=== PATIENT | female | born 1940 | race Hispanic/Latino ===

== ENCOUNTER 2017-03-26 16:43 | Emergency (ER) | payer OTHER ==
[~2017-03-26 16:43] MED LIST: ALEN70TA47 PO; CALC600T12 PO; CHOL200026 PO; LOSA1TAB37 PO; MULT-1258 PO; PRAV20TA4 PO
[2017-03-26] MEDS ORDERED: SODIUM CHLORIDE 0.9% 1000ML 1,000 ML IV ONE (17:32)
[2017-03-26] MEDS ORDERED: ONDANSETRON HCL 4 MG/2 ML VIAL ONE (17:32)
[2017-03-26] MEDS ORDERED: MORPHINE SULFATE 2 MG/ML 1ML SYG ONE (17:33)
[2017-03-26 17:57] LABS: BASOPHILS % (AUTO) 0.4 % (0.0-5.0); EOSINOPHILS % (AUTO) 0.5 % (0.0-8.0); LYMPHOCYTES % (AUTO) 14.2 % (21.0-51.0); MEAN CORPUSCULAR HGB CONC 34.5 g/dL (32.0-36.0); MONOCYTES % (AUTO) 7.9 % (3.0-13.0); PLATELET COUNT (AUTO) 276 K/uL (130-400); RED BLOOD CELL COUNT(AUTO) 4.45 MIL/uL (4.00-5.50); RED CELL DISTRIBUTION WIDTH 14.7 % (11.0-15.5); WHITE BLOOD COUNT (AUTO) 15.3 K/uL (4.8-10.8)
[2017-03-26 17:59] LABS: BILIRUBIN,URINE Negative (NEGATIVE); COLOR,URINE Yellow (YELLOW); GLUCOSE, URINE (UA) Negative (NEGATIVE); KETONES,URINE 15 mg/dL (NEGATIVE); LEUKOCYTE ESTERASE ,URINE Small (NEGATIVE); NITRATE,URINE Negative (NEGATIVE); OCCULT BLOOD,URINE Negative (NEGATIVE); PH,URINE >=9.0 (5.0-8.0); PROTEIN,URINE Trace (NEGATIVE)
[2017-03-26 18:06] LABS: INR 0.94 (0.85-1.15); PARTIAL THROMBOPLASTIN TIME 25.7 SEC (26.3-35.5); PROTHROMBIN TIME 9.9 SEC (9.6-11.6)
[2017-03-26 18:07] LABS: APPEARANCE,URINE SLIGHTLY CLOUDY (CLEAR)
[2017-03-26 18:15] LABS: CREATININE 0.7 mg/dL (0.5-1.5); POTASSIUM 3.5 mmol/L (3.5-5.1)
[2017-03-26 18:20] LABS: ALBUMIN 3.9 g/dL (3.5-5.0); BILIRUBIN,TOTAL 0.9 mg/dL (0.2-1.0); TOTAL PROTEIN, SERUM 7.4 g/dL (6.0-8.3)
[2017-03-26 18:54] LABS: RBC,URINE 0-1 /HPF (0-1)
[2017-03-26 18:55] LABS: AMORPHOUS SEDIMENT,UR Few /LPF (None Seen); BACTERIA,URINE Few /HPF (None Seen); SQUAMOUS EPITHELIAL CELL,UR Rare /LPF (0-2)
[2017-03-26] MEDS ORDERED: IOPAMIDOL-370 75 ML VIAL IV ONE (20:08)
== END 2017-03-26 22:13 | disposition home or self-care (01) ==
LOC: EDH 16:43
DX: K52.9 Noninfective gastroenteritis and colitis, unspecified (principal); R11.2 Nausea with vomiting, unspecified; I10 Essential (primary) hypertension; M81.0 Age-related osteoporosis without current pathological fracture; Z90.710 Acquired absence of both cervix and uterus; Z90.49 Acquired absence of other specified parts of digestive tract; Z79.899 Other long term (current) drug therapy
CPT/HCPCS: 36415; 71045; 74177; 80053; 81001; 82550; 83690; 84484; 85025; 85610; 85730; 93005; 96361; 96374; 96375; 99285; J2405; J7030; Q9967

== ENCOUNTER 2017-04-22 07:29 | Day surgery (SDC) | payer OTHER ==
[~2017-04-22] VITALS: Ht 154.9 cm; Wt 66.1 kg
[2017-04-22] MEDS ORDERED: TRAM50TA4 PO (09:05)
[2017-04-22] MEDS ORDERED: DICL2100G TP (09:05)
[2017-04-22] MEDS ORDERED: RALO60TA13 PO (09:05)
[2017-04-22 09:06] VITALS: BP 146/73
[2017-04-22] MEDS ORDERED: SODIUM CHLORIDE 0.9% 1000ML 1,000 ML IV ONE (09:20)
[2017-04-22] MEDS ORDERED: PROPOFOL 10 MG/ML 20ML VIAL IV ONE (09:22)
[2017-04-22 09:35] VITALS: BP 105/50
== END 2017-04-22 10:10 ==
LOC: DAH 07:29
PROVIDERS: ATTEND Internal Medicine Gastroenterology
DX: R93.5 Abnormal findings on diagnostic imaging of other abdominal regions, including retroperitoneum (principal); Z79.899 Other long term (current) drug therapy; E78.5 Hyperlipidemia, unspecified; I10 Essential (primary) hypertension; Z90.49 Acquired absence of other specified parts of digestive tract; Z90.710 Acquired absence of both cervix and uterus; K59.04 Chronic idiopathic constipation
CPT/HCPCS: 43231; 93005; A4606; J2704; J7030

== ENCOUNTER 2017-12-29 14:18 | Emergency (ER) | payer OTHER ==
[~2017-12-29 14:18] MED LIST changes: -ALEN70TA47 PO; +DICL2100G TP; +RALO60TA13 PO; +TRAM50TA4 PO
[2017-12-29] MEDS ORDERED: ONDANSETRON HCL 4 MG/2 ML VIAL ONE (14:38)
[2017-12-29 14:55] LABS: BASOPHILS % (AUTO) 0.3 % (0.0-5.0); EOSINOPHILS % (AUTO) 0.5 % (0.0-8.0); HEMATOCRIT 40.4 % (36-48); MEAN CORPUSCULAR HEMOGLOBIN 32.6 pg (27.0-33.0); MEAN CORPUSCULAR HGB CONC 34.3 g/dL (32.0-36.0); MEAN CORPUSCULAR VOLUME 95.1 fL (79-99); MONOCYTES % (AUTO) 6.2 % (3.0-13.0); NUCLEATED RED BLOOD CELLS 0.1 % (0.0-0.19); PLATELET COUNT (AUTO) 205 K/uL (130-400); RED BLOOD CELL COUNT(AUTO) 4.25 MIL/uL (4.00-5.50); RED CELL DISTRIBUTION WIDTH 13.6 % (11.0-15.5); WHITE BLOOD COUNT (AUTO) 8.4 K/uL (4.8-10.8)
[2017-12-29 15:41] LABS: CREATININE 0.6 mg/dL (0.5-1.5); POTASSIUM 3.3 mmol/L (3.5-5.1)
[2017-12-29 15:46] LABS: ALBUMIN 3.7 g/dL (3.5-5.0); BILIRUBIN,TOTAL 1.4 mg/dL (0.2-1.0); TOTAL PROTEIN, SERUM 7.1 g/dL (6.0-8.3)
== END 2017-12-29 17:03 | disposition home or self-care (01) ==
LOC: EDH 14:18
DX: A09 Infectious gastroenteritis and colitis, unspecified (principal); E86.9 Volume depletion, unspecified; I10 Essential (primary) hypertension; M81.0 Age-related osteoporosis without current pathological fracture
CPT/HCPCS: 36415; 80053; 85025; 96361; 96374; 99284; J2405

== ENCOUNTER → 2018-07-27 | Outpatient (CLI) | payer OTHER ==
[~2018-07-27] MED LIST changes: +IOHEXOL-350 50ML VIAL IV ONE
== END | disposition home or self-care (01) ==
LOC: RAH 07:55
PROVIDERS: ATTEND Family Medicine
DX: J44.9 Chronic obstructive pulmonary disease, unspecified (principal); R91.1 Solitary pulmonary nodule; M47.815 Spondylosis without myelopathy or radiculopathy, thoracolumbar region
CPT/HCPCS: 71270; Q9967

== ENCOUNTER 2018-08-05 06:25 | Observation (INO) | payer OTHER ==
[2018-08-04 16:02] VITALS: BP 134/65
[2018-08-04 16:08] LABS: APPEARANCE,URINE Clear (CLEAR); BILIRUBIN,URINE Negative (NEGATIVE); COLOR,URINE Yellow (YELLOW); GLUCOSE, URINE (UA) Negative (NEGATIVE); KETONES,URINE Negative (NEGATIVE); LEUKOCYTE ESTERASE ,URINE Negative (NEGATIVE); NITRATE,URINE Negative (NEGATIVE); OCCULT BLOOD,URINE Negative (NEGATIVE); PROTEIN,URINE Negative (NEGATIVE); UROBILINOGEN,URINE 0.2 mg/dL (0.2-1.0)
[~2018-08-05] VITALS: Ht 154.9 cm; Wt 65.2 kg
[2018-08-05] VITALS (21 sets, daily range): BP systolic 50–130; BP diastolic 44–60
[~2018-08-05 06:25] MED LIST changes: +ACET-2743 PO; +BRIM10DR16 OU; +CETI10TA57 PO; -DICL2100G TP; -IOHEXOL-350 50ML VIAL IV ONE; -TRAM50TA4 PO
[2018-08-05] MEDS ORDERED: TRANEXAMIC ACID 1000MG/10ML IV ONE ×2 (08:30→12:55)
[2018-08-05] MEDS ORDERED: CEFAZOLIN SODIUM 1 GM VIAL ONE (08:30)
[2018-08-05] MEDS ORDERED: ACETAMINOPHEN EXTRA STRENGTH 500 MG TABLET ONE (08:38)
[2018-08-05] MEDS ORDERED: KETOROLAC TROMETHAMINE 15MG/ML ONE (08:38)
[2018-08-05] MEDS ORDERED: CELECOXIB 200 MG CAP ONE (08:39)
[2018-08-05] MEDS ORDERED: OXYCODONE HCL 10 MG TAB.SR.12H PO ONE (08:39)
[2018-08-05] MEDS ORDERED: LACTATED RINGERS 1000ML 1,000 ML IV ONE (08:40)
[2018-08-05] MEDS: CEFAZOLIN SODIUM 1 GM VIAL ONE ×2 (09:08→10:20)
[2018-08-05] MEDS ORDERED: DEXAMETHASONE SOD PHOSPHATE 10MG/ML 1ML VIAL ONE (09:59)
[2018-08-05] MEDS ORDERED: LIDOCAINE PF 2% 5ML ABBOJECT ONE (09:59)
[2018-08-05] MEDS ORDERED: PROPOFOL 10 MG/ML 20ML VIAL IV ONE (10:00)
[2018-08-05] MEDS ORDERED: MIDAZOLAM HCL 1 MG/ML 2ML VIAL ONE (10:00)
[2018-08-05] MEDS ORDERED: FENTANYL CITRATE PF 50 MCG/1 ML 2ML VIAL ONE ×2 (10:00→11:08)
[2018-08-05] MEDS ORDERED: ONDANSETRON HCL 4 MG/2 ML VIAL ONE (10:00)
[2018-08-05] MEDS ORDERED: EPHEDRINE SULFATE 50 MG/ML AMPULE ONE (10:06)
[2018-08-05] MEDS ORDERED: ROPIVACAINE 0.5% 5MG/ML 30ML IJ ONE (10:08)
[2018-08-05] MEDS ORDERED: TRAMADOL HCL 50 MG TABLET PO PRN (12:30)
[2018-08-05] MEDS ORDERED: POTASSIUM CHLORIDE 20MEQ/100ML 100 ML IV PRN (12:30)
[2018-08-05] MEDS ORDERED: ONDANSETRON HCL 4 MG/2 ML VIAL IVP PRN (12:30)
[2018-08-05] MEDS ORDERED: FERROUS FUMARATE 324 MG TABLET PO PRN (12:30)
[2018-08-05] MEDS ORDERED: KETOROLAC TROMETHAMINE 15MG/ML IV PRN (12:30)
[2018-08-05] MEDS ORDERED: TEMAZEPAM 15 MG CAPSULE PO PRN (12:30)
[2018-08-05] MEDS ORDERED: OXYCODONE HCL 5 MG TAB PO PRN (12:30)
[2018-08-05] MEDS ORDERED: LIDOCAINE HCL-MPF 1% 2ML VIAL IVP PRN (12:30)
[2018-08-05] MEDS ORDERED: POTASSIUM CHLORIDE 20 MEQ ERTAB PO PRN (12:30)
[2018-08-05] MEDS ORDERED: CALCIUM CARBONATE 500 MG TABLET PO PRN (12:30)
[2018-08-05] MEDS ORDERED: DiphenhydrAMINE HCL 50 MG/ML VIAL IVP PRN (12:30)
[2018-08-05] MEDS ORDERED: POTASSIUM CHLORIDE 10% ELIXIR 20 MEQ/15 ML UDCUP PO PRN (12:30)
[2018-08-05] MEDS ORDERED: GLYCOPYRROLATE 1 MG/5 ML SYRINGE ONE (12:44)
[2018-08-05] MEDS ORDERED: NEOSTIGMINE 5MG/5ML SYR IV ONE (12:44)
[2018-08-05] MEDS: ACETAMINOPHEN EXTRA STRENGTH 500 MG TABLET PO SCH ×2 (14:05→20:40)
[2018-08-05] MEDS: SODIUM CHLORIDE 0.9% 1000ML 1,000 ML IV SCH (14:05)
--- NOTE | 2018-08-05 17:25 | NUR ---
DC PLAN VISITED WITH PATIENT. PATIENT LIVES WITH DAUGHTER. PATIENT HAS NO SERVICES OR DME'S. FEELS SAFE TO RETURN HOME. PATIENT ERIN SIGNED FOR [employer] AND ANY DME IN NETWORK. INFO SENT TO [facility] AND TO [facility]. AFTER TALKING TO PATIENT THAT INSURANCE MIGHT ONLY COVER ONE DME. SAID TO GET 3 IN 1 HAS WALKER WITH WHEELS AT HOME WILL JUST GET THE FEET TO CHANGE TO STANDARD WALKER. Addendum: 08/05/18 at 1728 by NOLA WILLINGHAM RN CM Amended: Links added.
[2018-08-05] MEDS: CEFAZOLIN SODIUM 1 GM VIAL IVP SCH (17:46)
[2018-08-05] MEDS: PREGABALIN 25 MG CAP PO SCH (20:38)
[2018-08-05] MEDS: ASPIRIN 325 MG TABLET PO SCH (20:38)
[2018-08-05] MEDS: FAMOTIDINE 20MG TAB 20 MG TAB PO SCH (20:38)
[2018-08-05] MEDS: CELECOXIB 200 MG CAP PO SCH (20:38)
[2018-08-05] MEDS: BRIMONIDINE OU SCH (20:40)
[2018-08-05] MEDS: DORZOLAMIDE OU SCH (20:40)
[2018-08-05] MEDS ORDERED: ATORVASTATIN CALCIUM 10 MG TABLET PO SCH (21:00)
[2018-08-06] VITALS: BP 96/55
[2018-08-06] MEDS: CEFAZOLIN SODIUM 1 GM VIAL IVP SCH (00:21)
[2018-08-06] MEDS: SODIUM CHLORIDE 0.9% 1000ML 1,000 ML IV SCH (00:22)
[2018-08-06 04:00] VITALS: BP 118/59
[2018-08-06 04:52] LABS: HEMATOCRIT 31.3 % (36-48); MEAN CORPUSCULAR HEMOGLOBIN 32.5 pg (27.0-33.0); MEAN CORPUSCULAR HGB CONC 33.9 g/dL (32.0-36.0); MEAN CORPUSCULAR VOLUME 95.9 fL (79-99); PLATELET COUNT (AUTO) 200 K/uL (130-400); RED BLOOD CELL COUNT(AUTO) 3.27 MIL/uL (4.00-5.50); RED CELL DISTRIBUTION WIDTH 13.3 % (11.0-15.5); WHITE BLOOD COUNT (AUTO) 8.3 K/uL (4.8-10.8)
[2018-08-06] MEDS: ACETAMINOPHEN EXTRA STRENGTH 500 MG TABLET PO SCH ×2 (04:52→12:40)
[2018-08-06 05:14] LABS: CREATININE 0.7 mg/dL (0.5-1.5); POTASSIUM 3.4 mmol/L (3.5-5.1)
[2018-08-06] MEDS: OXYCODONE HCL 5 MG TAB PO PRN ×2 (05:19→10:37)
[2018-08-06 08:26] VITALS: BP 120/56
[2018-08-06] MEDS: FAMOTIDINE 20MG TAB 20 MG TAB PO SCH (08:30)
[2018-08-06] MEDS: CELECOXIB 200 MG CAP PO SCH (08:30)
[2018-08-06] MEDS: PREGABALIN 25 MG CAP PO SCH (08:30)
[2018-08-06] MEDS: ASPIRIN 325 MG TABLET PO SCH (08:30)
[2018-08-06] MEDS ORDERED: LOSARTAN/HYDROCHLOROTHIAZIDE 50-12.5MG TABLET PO SCH (09:00)
[2018-08-06] MEDS ORDERED: MULTIVITAMIN WITH MINERALS TABLET PO SCH (09:00)
[2018-08-06] MEDS ORDERED: RALOXIFENE HCL 60 MG TABLET PO SCH (09:00)
[2018-08-06] MEDS ORDERED: CALCIUM CARBONATE 500 MG TABLET PO SCH (09:00)
[2018-08-06] MEDS ORDERED: CETIRIZINE HCL 5 MG TABLET PO SCH (09:00)
[2018-08-06] MEDS: BRIMONIDINE OU SCH (09:00)
[2018-08-06] MEDS: DORZOLAMIDE OU SCH (09:00)
[2018-08-06] MEDS ORDERED: POLYETHYLENE GLYCOL 3350 17 GM POWD.PACK PO SCH (09:00)
[2018-08-06] MEDS ORDERED: **HM**Cholecalciferol (Vitamin D3) (Vitamin D3) 2,000 UNIT PO SCH (09:00)
[2018-08-06 11:36] VITALS: BP 104/46
[2018-08-06] MEDS ORDERED: HYDR-4457 PO (11:38)
[2018-08-06] MEDS ORDERED: ASPI-1012 PO (11:38)
--- NOTE | 2018-08-06 16:50 | NUR ---
PT D/C W EDUCATION USING TEACH BACK SUCCESSFULLY NO SIGNS OF DISTRESS NOTED IV REMOVED, CATHETER INTACT DRESSING CHANGED DONE EXTENSIVE REPORT GIVEN TO ZUNILDA FROM [facility] REFER TO D/C ORDERS
[2018-08-08] MEDS ORDERED: BISACODYL 10 MG SUPP.RECT RC PRN (12:30)
== END 2018-08-06 17:07 | disposition home health service (06) ==
LOC: DAH 06:25 → 4AH 06:26
PROVIDERS: ADMIT Orthopaedic Surgery; ATTEND Orthopaedic Surgery
DX: M17.11 Unilateral primary osteoarthritis, right knee (principal); Z79.899 Other long term (current) drug therapy
CPT/HCPCS: 27447; 36415; 80048; 81003; 85027; 87641; 88304; 88311; 96374; 96375; 96376; 97039; 97116 ×2; 97161; 97530; A4649 ×6; A4930 ×2; A6219; C1763; C1776; G0168; G0378 ×28; G8978; G8979; G8980; G8981; G8982; G8983; J0690 ×4; J1100; J1885; J2001; J2250; J2405; J2704; J2710; J2795; J3010 ×2; J3490 ×4; J7120 ×2

== ENCOUNTER 2020-05-30 13:47 | Emergency (ER) | payer OTHER ==
[~2020-05-30 13:47] MED LIST changes: +ASPI-1012 PO; -CALC600T12 PO; +CALC600T15 PO; +HYDR-4457 PO
[2020-05-30] MEDS ORDERED: MORPHINE SULFATE 2 MG/ML 1ML SYG ONE (14:15)
[2020-05-30] MEDS ORDERED: METOCLOPRAMIDE 10 MG/2 ML VIAL ONE (14:15)
[2020-05-30 14:31] LABS: BASOPHILS % (AUTO) 0.7 % (0.0-5.0); EOSINOPHILS % (AUTO) 1.1 % (0.0-8.0); HEMATOCRIT 36.3 % (36-48); LYMPHOCYTES % (AUTO) 41.2 % (21.0-51.0); MEAN CORPUSCULAR HGB CONC 34.2 g/dL (32.0-36.0); MEAN CORPUSCULAR VOLUME 93.8 fL (79-99); MONOCYTES % (AUTO) 8.9 % (3.0-13.0); NEUTROPHILS % (AUTO) 47.8 % (40.0-77.0); PLATELET COUNT (AUTO) 206 K/uL (130-400); RED BLOOD CELL COUNT(AUTO) 3.87 MIL/uL (4.00-5.50); RED CELL DISTRIBUTION WIDTH 12.9 % (11.0-15.5); WHITE BLOOD COUNT (AUTO) 7.5 K/uL (4.8-10.8)
[2020-05-30 14:42] LABS: CREATININE 0.8 mg/dL (0.5-1.5); POTASSIUM 3.3 mmol/L (3.5-5.1)
[2020-05-30 14:44] LABS: INR 0.96 (0.85-1.15); PROTHROMBIN TIME 10.5 SEC (9.6-11.6)
[2020-05-30 14:45] LABS: PARTIAL THROMBOPLASTIN TIME 24.1 SEC (26.3-35.5)
[2020-05-30 14:47] LABS: ALBUMIN 3.5 g/dL (3.5-5.0); BILIRUBIN,TOTAL 0.5 mg/dL (0.2-1.0); TOTAL PROTEIN, SERUM 7.2 g/dL (6.0-8.3)
[2020-05-30 14:52] LABS: APPEARANCE,URINE Clear (CLEAR); BILIRUBIN,URINE Negative (NEGATIVE); COLOR,URINE Yellow (YELLOW); GLUCOSE, URINE (UA) Negative (NEGATIVE); KETONES,URINE Negative (NEGATIVE); LEUKOCYTE ESTERASE ,URINE Trace (NEGATIVE); NITRATE,URINE Negative (NEGATIVE); OCCULT BLOOD,URINE Negative (NEGATIVE); PROTEIN,URINE Negative (NEGATIVE)
[2020-05-30 14:58] LABS: RBC,URINE 0-1 /HPF (0-1)
[2020-05-30 14:59] LABS: BACTERIA,URINE Rare /HPF (None Seen); SQUAMOUS EPITHELIAL CELL,UR Few /HPF (0-2); WBC,URINE 0-1 /HPF (0-1)
== END 2020-05-30 16:18 | disposition home or self-care (01) ==
LOC: EDH 13:47
DX: S16.1XXA Strain of muscle, fascia and tendon at neck level, initial encounter (principal); G44.209 Tension-type headache, unspecified, not intractable; I10 Essential (primary) hypertension; M81.0 Age-related osteoporosis without current pathological fracture; Z90.710 Acquired absence of both cervix and uterus; Z90.49 Acquired absence of other specified parts of digestive tract; X58.XXXA Exposure to other specified factors, initial encounter; Y93.89 Activity, other specified; Y92.89 Other specified places as the place of occurrence of the external cause; Y99.8 Other external cause status
CPT/HCPCS: 36415; 70450; 80053; 81001; 85025; 85610; 85730; 93005; 96374; 96375; 99285; J2765

== ENCOUNTER 2020-11-30 07:47 | Observation (INO) | payer OTHER ==
[2020-11-28 14:45] LABS: BASOPHILS % (AUTO) 0.9 % (0.0-5.0); EOSINOPHILS % (AUTO) 1.4 % (0.0-8.0); HEMATOCRIT 40.6 % (36-48); LYMPHOCYTES % (AUTO) 41.7 % (21.0-51.0); MEAN CORPUSCULAR HEMOGLOBIN 31.7 pg (27.0-33.0); MEAN CORPUSCULAR HGB CONC 32.8 g/dL (32.0-36.0); MEAN CORPUSCULAR VOLUME 96.7 fL (79-99); MONOCYTES % (AUTO) 8.7 % (3.0-13.0); NEUTROPHILS % (AUTO) 47.1 % (40.0-77.0); PLATELET COUNT (AUTO) 253 K/uL (130-400); RED CELL DISTRIBUTION WIDTH 12.6 % (11.0-15.5); WHITE BLOOD COUNT (AUTO) 8.1 K/uL (4.8-10.8)
[2020-11-28 14:58] LABS: CREATININE 0.8 mg/dL (0.5-1.5); POTASSIUM 3.8 mmol/L (3.5-5.1)
[2020-11-28 15:03] LABS: INR 1.02 (0.85-1.15); PROTHROMBIN TIME 11.1 SEC (9.6-11.6)
[2020-11-28 15:05] LABS: PARTIAL THROMBOPLASTIN TIME 26.9 SEC (26.3-35.5)
[2020-11-28 15:54] VITALS: BP 149/66
[~2020-11-30] VITALS: Ht 157.5 cm; Wt 73.0 kg
[2020-11-30] VITALS (24 sets, daily range): BP systolic 110–145; BP diastolic 50–86
[~2020-11-30 07:47] MED LIST changes: -ACET-2743 PO; -ASPI-1012 PO; +ASPI-1197 PO; -BRIM10DR16 OU; +CALC-1105 PO; -CALC600T15 PO; -HYDR-4457 PO; +MONT10TA32 PO; -MULT-1258 PO; +MULT-503 PO
[2020-11-30] MEDS ORDERED: LACTATED RINGERS 1000ML 1,000 ML IV ONE (08:17)
[2020-11-30] MEDS: CEFAZOLIN SODIUM 1 GM VIAL IVP SCH ×2 (08:30→13:38)
[2020-11-30] MEDS ORDERED: LIDOCAINE HCL/EPINEPHRINE 30 ML VIAL IJ SCH (12:30)
[2020-11-30] MEDS ORDERED: MIDAZOLAM HCL 1 MG/ML 2ML VIAL ONE (12:47)
[2020-11-30] MEDS ORDERED: LIDOCAINE HCL-MPF 1% 5ML AMP IJ ONE (12:55)
[2020-11-30] MEDS ORDERED: SUCCINYLCHOLINE CHLORIDE 20 MG/ML 10 ML VIAL ONE (12:55)
[2020-11-30] MEDS ORDERED: PROPOFOL 10 MG/ML 20ML VIAL IV ONE ×2 (12:56→14:43)
[2020-11-30] MEDS ORDERED: FENTANYL CITRATE PF 50 MCG/1 ML 5ML AMP IV ONE (12:56)
[2020-11-30] MEDS ORDERED: ROCURONIUM 10MG/1ML SYR 10 MG/ML ML ONE (13:03)
[2020-11-30] MEDS ORDERED: GLYCOPYRROLATE 1 MG/5 ML SYRINGE ONE (13:46)
[2020-11-30] MEDS ORDERED: ACETAMINOPHEN 500 MG TABLET ONE (17:23)
[2020-11-30] MEDS: ACETAMINOPHEN 500 MG TABLET PO SCH (17:24)
[2020-11-30] MEDS ORDERED: ONDANSETRON 4MG INJ IVP PRN (17:30)
[2020-11-30] MEDS ORDERED: HYDROMORPHONE 0.5 MG SYG (0.5MG/0.5ML) IVP PRN (17:30)
[2020-11-30] MEDS ORDERED: IBUPROFEN 600 MG TABLET PO PRN (17:30)
[2020-12-01 00:10] VITALS: BP 115/68
[2020-12-01] MEDS: ACETAMINOPHEN 500 MG TABLET PO SCH ×2 (00:17→05:53)
[2020-12-01 03:10] VITALS: BP 99/55
[2020-12-01 07:00] VITALS: BP 115/45
[2020-12-01 08:30] VITALS: BP 120/55
[2020-12-01] MEDS ORDERED: CETIRIZINE HCL 5 MG TABLET PO SCH (09:00)
[2020-12-01] MEDS ORDERED: MULTIVITAMIN WITH MINERALS TABLET PO SCH (09:00)
[2020-12-01] MEDS ORDERED: RALOXIFENE HCL 60 MG TABLET PO SCH (09:00)
[2020-12-01] MEDS ORDERED: HYDROCHLOROTHIAZIDE 25 MG TABLET PO SCH (09:00)
[2020-12-01] MEDS ORDERED: MONTELUKAST SODIUM 10 MG TAB PO SCH (09:00)
[2020-12-01] MEDS ORDERED: CA 600MG+VIT D 400 UNIT TAB 1 TAB TABLET PO SCH (09:00)
[2020-12-01] MEDS ORDERED: SIMVASTATIN 10 MG TABLET PO SCH (09:00)
[2020-12-01] MEDS ORDERED: BACITRACIN 28.4 GM OINT TP SCH (09:00)
[2020-12-01] MEDS ORDERED: LOSARTAN 50 MG TABLET PO SCH (09:00)
[2020-12-01 11:45] VITALS: BP 131/56
== END 2020-12-01 12:45 | disposition home or self-care (01) ==
LOC: DAH 07:47 → DAHIP 07:48 → DAH 07:48 → EDSTATUS 09:30 → WSH 17:20
PROVIDERS: ADMIT Otolaryngology; ATTEND Otolaryngology
DX: E04.1 Nontoxic single thyroid nodule (principal); Z20.822 Contact with and (suspected) exposure to COVID-19; E05.10 Thyrotoxicosis with toxic single thyroid nodule without thyrotoxic crisis or storm; I10 Essential (primary) hypertension; E78.00 Pure hypercholesterolemia, unspecified; R11.2 Nausea with vomiting, unspecified
CPT/HCPCS: 36415; 60220; 71045; 80048; 85025; 85610; 85730; 87635; 88307; 93005; 96360; 96361 ×2; A4215; A4221; A4222; A4223; A4649 ×2; A4663; A4930; G0378 ×19; J0330; J0690; J2250; J2704; J3010; J3490 ×2; J7120 ×2

== ENCOUNTER → 2021-04-16 | Outpatient (CLI) | payer OTHER ==
[~2021-04-16] MED LIST changes: +IOHEXOL-350 75 ML VIAL IV ONE; +MONT-39 PO; -MONT10TA32 PO
== END | disposition home or self-care (01) ==
LOC: RAH 07:56
PROVIDERS: ATTEND Otolaryngology
DX: H93.A1 Pulsatile tinnitus, right ear (principal); G93.89 Other specified disorders of brain; I77.89 Other specified disorders of arteries and arterioles
CPT/HCPCS: 70496; Q9967

== ENCOUNTER 2021-11-18 12:10 | Emergency (ER) | payer OTHER ==
[~2021-11-18] VITALS: Ht 157.5 cm; Wt 76.2 kg
[~2021-11-18 12:10] MED LIST changes: -IOHEXOL-350 75 ML VIAL IV ONE
[2021-11-18 12:27] LABS: BASOPHILS % (AUTO) 0.7 % (0.0-5.0); EOSINOPHILS % (AUTO) 0.7 % (0.0-8.0); HEMATOCRIT 40.1 % (36-48); MEAN CORPUSCULAR HEMOGLOBIN 31.8 pg (27.0-33.0); MEAN CORPUSCULAR HGB CONC 33.4 g/dL (32.0-36.0); MONOCYTES % (AUTO) 8.1 % (3.0-13.0); NEUTROPHILS % (AUTO) 58.1 % (40.0-77.0); PLATELET COUNT (AUTO) 231 K/uL (130-400); RED BLOOD CELL COUNT(AUTO) 4.22 MIL/uL (4.00-5.50); RED CELL DISTRIBUTION WIDTH 12.8 % (11.0-15.5); WHITE BLOOD COUNT (AUTO) 9.7 K/uL (4.8-10.8)
[2021-11-18 12:36] LABS: CREATININE 0.9 mg/dL (0.5-1.5); POTASSIUM 3.2 mmol/L (3.5-5.1)
[2021-11-18] MEDS ORDERED: IOHEXOL 350 MG/ML 100ML INFUS..BTL IV ONE (12:37)
[2021-11-18 12:40] LABS: ALBUMIN 3.6 g/dL (3.5-5.0); TOTAL PROTEIN, SERUM 7.7 g/dL (6.0-8.3)
[2021-11-18] MEDS ORDERED: MORPHINE 2 MG SYG IVP ONE (13:00)
[2021-11-18] MEDS ORDERED: IBUP-2088 PO (14:46)
[2021-11-18 15:52] VITALS: BP 121/52
== END 2021-11-18 15:50 | disposition home or self-care (01) ==
LOC: EDH 12:10
DX: S40.022A Contusion of left upper arm, initial encounter (principal); S80.02XA Contusion of left knee, initial encounter; S80.01XA Contusion of right knee, initial encounter; M54.2 Cervicalgia; M81.0 Age-related osteoporosis without current pathological fracture; I10 Essential (primary) hypertension; E78.5 Hyperlipidemia, unspecified; Z98.890 Other specified postprocedural states; Z79.899 Other long term (current) drug therapy; Z79.82 Long term (current) use of aspirin; W19.XXXA Unspecified fall, initial encounter; Y93.89 Activity, other specified; Y92.89 Other specified places as the place of occurrence of the external cause; Y99.8 Other external cause status
CPT/HCPCS: 99285; 70450; 96374; 84484; 80053; 85025; 36415; 73560; 73060; 72125; 71260; 70486; 74177; 93005; Q9967

== ENCOUNTER 2021-11-29 13:27 | Emergency (ER) | payer OTHER ==
[~2021-11-29] VITALS: Ht 157.5 cm; Wt 72.6 kg
[~2021-11-29 13:27] MED LIST changes: +IBUP-2088 PO
[2021-11-29 13:33] VITALS: BP 137/70
[2021-11-29 14:10] LABS: BASOPHILS % (AUTO) 0.7 % (0.0-5.0); EOSINOPHILS % (AUTO) 2.4 % (0.0-8.0); HEMATOCRIT 36.4 % (36-48); LYMPHOCYTES % (AUTO) 34.2 % (21.0-51.0); MEAN CORPUSCULAR HEMOGLOBIN 31.7 pg (27.0-33.0); MONOCYTES % (AUTO) 10.5 % (3.0-13.0); NEUTROPHILS % (AUTO) 51.9 % (40.0-77.0); PLATELET COUNT (AUTO) 219 K/uL (130-400); RED BLOOD CELL COUNT(AUTO) 3.79 MIL/uL (4.00-5.50); RED CELL DISTRIBUTION WIDTH 12.8 % (11.0-15.5); WHITE BLOOD COUNT (AUTO) 7.6 K/uL (4.8-10.8)
[2021-11-29 14:23] LABS: CREATININE 0.9 mg/dL (0.5-1.5); POTASSIUM 4.2 mmol/L (3.5-5.1)
[2021-11-29 14:25] LABS: PARTIAL THROMBOPLASTIN TIME 24.8 SEC (26.3-35.5)
[2021-11-29 14:27] LABS: ALBUMIN 3.2 g/dL (3.5-5.0); TOTAL PROTEIN, SERUM 6.8 g/dL (6.0-8.3)
[2021-11-29] MEDS ORDERED: METH4TAB3 PO (16:29)
== END 2021-11-29 16:39 | disposition home or self-care (01) ==
LOC: EDH 13:27
DX: S80.11XA Contusion of right lower leg, initial encounter (principal); S80.12XA Contusion of left lower leg, initial encounter; S80.02XA Contusion of left knee, initial encounter; M79.18 Myalgia, other site; E78.00 Pure hypercholesterolemia, unspecified; I10 Essential (primary) hypertension; M19.90 Unspecified osteoarthritis, unspecified site; M81.0 Age-related osteoporosis without current pathological fracture; Z79.1 Long term (current) use of non-steroidal anti-inflammatories (NSAID); W01.0XXA Fall on same level from slipping, tripping and stumbling without subsequent striking against object, initial encounter; Y93.89 Activity, other specified; Y92.89 Other specified places as the place of occurrence of the external cause; Y99.8 Other external cause status
CPT/HCPCS: 36415; 80053; 84484; 85025; 85378; 85730; 93970

== ENCOUNTER 2023-01-05 10:31 | Emergency (ER) | payer OTHER ==
[~2023-01-05] VITALS: Ht 157.5 cm; Wt 81.6 kg
[~2023-01-05 10:31] MED LIST changes: +GUAI5LIQ13 PO; +METH4TAB3 PO; +NIRM1TAB5 PO
[2023-01-05 11:13] LABS: MEAN CORPUSCULAR HEMOGLOBIN 32.5 pg (27.0-33.0); MEAN CORPUSCULAR HGB CONC 33.3 g/dL (32.0-36.0); MEAN CORPUSCULAR VOLUME 97.4 fL (79-99); PLATELET COUNT (AUTO) 232 K/uL (130-400); RED BLOOD CELL COUNT(AUTO) 4.31 MIL/uL (4.00-5.50); RED CELL DISTRIBUTION WIDTH 12.9 % (11.0-15.5); WHITE BLOOD COUNT (AUTO) 7.5 K/uL (4.8-10.8)
[2023-01-05 11:21] LABS: CREATININE 0.9 mg/dL (0.5-1.5); POTASSIUM 3.6 mmol/L (3.5-5.1)
[2023-01-05 11:22] LABS: SARS-CoV-2, RNA, NAAT NEGATIVE SARS CoV-2 (NEGATIVE)
[2023-01-05 11:26] LABS: ALBUMIN 3.5 g/dL (3.5-5.0); BILIRUBIN,TOTAL 1.1 mg/dL (0.2-1.0); TOTAL PROTEIN, SERUM 7.7 g/dL (6.0-8.3)
[2023-01-05 11:28] LABS: INFLUENZA TYPE A Negative For Type A (NEGATIVE); INFLUENZA TYPE B Negative For Type B (NEGATIVE)
[2023-01-05 11:45] LABS: BAND NEUTROPHILS % (MANUAL) 2 % (0-2); BASOPHILS % (MANUAL) 1 % (0-2); EOSINOPHILS % (MANUAL) 1 % (1-6); LYMPHOCYTES % (MANUAL) 32 % (22-44); MAN.DIFF COMMENT-IMPRESSION MANUAL DIFFERENTIAL; MONOCYTES % (MANUAL) 8 % (2-9); PLATELET MORPHOLOGY COMMENT ADEQUATE; SEGMENTED NEUTROPHILS % 56 % (40-70); TOTAL CELLS COUNTED 100; WBC MORPHOLOGY CONSISTENT W/DIFF
[2023-01-05 12:04] LABS: APPEARANCE,URINE CLEAR (CLEAR); BILIRUBIN,URINE NEGATIVE (NEGATIVE); COLOR,URINE YELLOW (YELLOW); GLUCOSE, URINE (UA) NEGATIVE (NEGATIVE); KETONES,URINE NEGATIVE (NEGATIVE); LEUKOCYTE ESTERASE ,URINE 25 Leu/uL (NEGATIVE); NITRATE,URINE NEGATIVE (NEGATIVE); OCCULT BLOOD,URINE NEGATIVE (NEGATIVE); PROTEIN,URINE NEGATIVE (NEGATIVE); UROBILINOGEN,URINE 0.2 mg/dL (0.2-1.0)
[2023-01-05 12:06] LABS: ADD UA MICROSCOPIC YES
[2023-01-05 12:08] LABS: BACTERIA,URINE RARE /HPF (None Seen); MUCUS,URINE FEW LPF (None Seen); RBC,URINE 0-1 /HPF (0-1); SQUAMOUS EPITHELIAL CELL,UR RARE /HPF (0-2)
[2023-01-05] MEDS ORDERED: 0.9% NACL 500ML IV.SOLN 500 ML IV ONE (14:00)
[2023-01-05 15:34] VITALS: BP 127/65; PULSE 75; RESP 18; O2SAT 99
== END 2023-01-05 15:34 | disposition home or self-care (01) ==
LOC: EDH 10:31
DX: R53.1 Weakness (principal); E86.0 Dehydration; M79.10 Myalgia, unspecified site; F03.90 Unspecified dementia, unspecified severity, without behavioral disturbance, psychotic disturbance, mood disturbance, and anxiety; I10 Essential (primary) hypertension; Z79.899 Other long term (current) drug therapy; Z90.49 Acquired absence of other specified parts of digestive tract; Z20.822 Contact with and (suspected) exposure to COVID-19
CPT/HCPCS: 99285; 70450; 71045; 87635; 83735; 80053; 85025; 87804 ×2; 83605; 81001; 36415; 93005; C9803

== ENCOUNTER 2024-01-29 21:41 | Emergency (ER) | payer OTHER ==
[~2024-01-29] VITALS: Ht 157.5 cm; Wt 75.3 kg
[2024-01-29 22:33] VITALS: TEMP 98
[2024-01-29] MEDS: TobRAMYCin/DEXAmethASONE OPTH SUSP 2.5 ML BOT OD SCH (23:29)
[2024-01-29] MEDS: TETRACAINE HCL 0.5% 4 ML OPHTH SOLN OP SCH (23:29)
[2024-01-29] MEDS ORDERED: LIDOCAINE HCL 4% TOP SOL 50ML TP ONE (23:30)
--- NOTE | 2024-01-29 23:47 | ERN ---
ED Note History of Present Illness Stated Complaint: PAIN TO RIGHT EYE, AND REDNESS Chief Complaint: Eye Problems Time Seen by MD: 21:58 Dictation: This is an 83-year-old female who was brought to the emergency room by her daughter with complaints of severe discomfort in the right eye. She reported that the right eye began to turn red and she also has a feeling of sand in her eye. This has been going on for a few days and it got worse today with a pain and hence she came into the ER for further evaluation Blood pressure is 122/78 heart rate 62 respirations 20 temperature 98.1 pulse oximetry 96% on room air Her chronic medical problems include hypertension, hypercholesterolemia, dementia, asthma Allergies: Coded Allergies: No Allergy Information Available (Unverified Allergy, Unknown, 03/23/15) No Known Drug Intolerances (Unverified Allergy, Unknown, 08/04/18) Home Meds Active Scripts Guaifenesin/Dextromethorphan (Guaifenesin-Dm 100-10 mg/5 ml) 5 Ml Liquid, 5 ML PO Q4HPRN PRN for COUGH, #300 ML Prov:LAYA GALINDO MD 09/14/22 Nirmatrelvir/Ritonavir (Paxlovid 150-100 mg Pack (Eua)) 1 Each Tablet, 1 EACH PO BID for 5 Days, #1 PACK Prov:LAYA GALINDO MD 09/14/22 Methylprednisolone (Medrol) 4 Mg Tab.ds.pk, 4 MG PO AD, #1 PACK Prov:DARIUS HANDY MD 11/29/21 Ibuprofen (Motrin/Advil) 600 Mg Tab, 600 MG PO TIDP PRN for PAIN, #30 TAB Prov:ASH FOUNTAIN MD 11/18/21 Reported Medications Aspirin (Aspirin) 81 Mg Tab.chew, 81 MG PO AD, TAB.CHEW 11/28/20 Montelukast Sodium (Montelukast Sodium) 10 Mg Tablet, 10 MG PO DAILY, TAB 11/28/20 Calcium Carbonate/Vitamin D3 (Calcium 600 + Vit D3 Tablet) 1 Each Tablet, 1 EACH PO DAILY, TAB 11/28/20 Multivitamin with Minerals (One Daily Complete) 1 Each Tablet, 1 EACH PO DAILY, TAB 11/28/20 Cetirizine HCl (Cetirizine HCl) 10 Mg Tablet, 10 MG PO AM, TAB 08/04/18 Pravastatin Sodium (Pravastatin Sodium) 20 Mg Tablet, 20 MG PO DAILY, TAB 08/04/18 Raloxifene HCl (Raloxifene HCl) 60 Mg Tablet, 60 MG PO DAILY, TAB 04/22/17 Cholecalciferol (Vitamin D3) (Vitamin D3) 2,000 Unit Tablet, 2000 UNIT PO DAILY, TAB 03/23/15 Losartan/Hydrochlorothiazide (Losartan-Hctz 50-12.5 mg Tab) 1 Each Tablet, 1 EACH PO DAILY, TAB 03/23/15 Past Medical History Past Medical History: COPD, Dementia, Hypertension, Other Additional Past Medical Hx: OSTEOPOROSIS; SEASONAL ALLEGIES Surgical History: Hysterectomy, Other Surgical History Other: KNEE REPLACEMENT, PARTIAL HYSTERECTOMY 1985. Family History: CAD, HTN Social History: Negative, Lives with family History: Not Applicable RN Note Reviewed/Agreed w/PFSH: Yes Review of System Dictation As described in the history of present illness Constitutional: Negative for fever,chills, and weight loss Eyes: Negative for injury, pain,redness, and discharge ENT: Negative for injury,pain or swelling Cardiovascular: Negative for chest pain, palpitations, and edema Respiratory: Negative for shortness of breath, cough, and wheezing, Abdomen/GI: Negative for abdominal pain, nausea, vomiting, diarrhea, and constipation Back: Negative for injury and pain : Negative for injury, bleeding and discharge MS/Extremity: Negative for injury and deformity Skin: Negative for rash, and discoloration Neuro: Negative for headache, weakness, numbness, tingling, and seizure Psych: Negative for suicide ideation, homicidal ideation, and hallucinations Initial Vital Sign VS Vital Signs Date Time Temp Pulse Resp B/P (MAP) Pulse Ox O2 Delivery O2 Flow Rate FiO2 01/29/24 22:00 98.1 62 20 122/78 96 Room Air 01/29/24 22:33 0 21 Physical Exam Dictation General: awake, alert, NAD Head/Face: Normocephalic, atraumatic Eyes: PERRL, EOMI, vision at baseline right eye is swollen with severe erythema and conjunctival redness on the medial aspect of the right eye. No pus hyphema ENT: oral cavity clear, TMs clear, no signs of infection Neck: Trachea midline, supple, no nuchal rigidity Cardiovascular: RRR, normal S1/S2, No MRGs, no JVD Respiratory: CTAB, no respiratory distress, No rales or wheezes Abdomen: Soft, non-tender, non-distended, normal bowel sounds, no guarding or rebound. Skin: Warm, dry, normal turgor, no rash MS/Extremity: Pulses equal, no cyanosis, neurovascular intact, FROM Neuro: COAx4, GCS 15, strength 5/5, CN 2-12 intact, normal cerebellar exam, normal gait, Psych: Normal behavior, mood, and affect normal Extremities-trace edema without any palpable cords, Homans sign is negative Results (Laboratory/Radiology) Labs Reviewed?: Yes ED Course ED Course Orders Procedure Category Date Status Time Tobramycin PHA 01/29/24 In Process Sulf/Dexamethasone 23:30 Lidocaine Hcl 4% Top PHA 01/29/24 Complete Karla (Lidocaine Hcl 23:30 Tetracaine Hcl PHA 01/29/24 In Process (Pontocaine 0.5% 23:30 Current Medications Medications (Trade) Dose Ordered Sig/Sudeep Route PRN Reason Start Time Stop Time Status Last Admin Dose Admin Lidocaine HCl (Lidocaine HCl 4% Top Karla) 1 ml ONCE ONCE TP 01/29/24 23:30 01/29/24 23:21 DC Tetracaine HCl (Pontocaine 0.5% Ophth Soln) 1 OR 2 DROPS ONCE OP 01/29/24 23:30 02/28/24 23:29 01/29/24 23:29 Tobramycin/ Dexamethasone (TobraDEX EYE DROPS) 1 DROP ONCE OD 01/29/24 23:30 02/28/24 23:29 01/29/24 23:29 Vital Signs Date Time Temp Pulse Resp B/P (MAP) Pulse Ox O2 Delivery O2 Flow Rate FiO2 01/29/24 22:33 98.1 62 16 138/55 97 Room Air* 0 21 01/29/24 22:00 98.1 62 20 122/78 96 Room Air We will administer medications according to the patient's complaint. Once the results are available, will review and personally interpreted the labs to rule out any acute life-threatening emergency the trach require immediate intervention and treatment. I will then re-evaluate the patient after treatment and diagnostic exams have return to determine whether the patient requires any further testing, can safely be discharged home or need further admission to hospital for additional treatment and evaluation. A trial of TobraDex eye drops. I have very cautiously given a few lidocaine drops and instructed her that there is an increased risk of perforation with long-term use and that she must follow as outpatient with an wellness spa manager to evaluate for other conditions including glaucoma uveitis etc.. Medical Decision Making MDM MDM: Differential diagnosis: Conjunctivitis, episcleritis, uveitis, blepharitis, glaucoma Rationale: Tests considered and ordered secondary to shared decision making include: Previous outside records reviewed: Old ER visits. Risk of complication and/or morbidity or mortality of patient management: None Medications-Per medication reconciliation Need for hospitalization: Patient does not meet criteria for hospitalization. Need for emergency major/minor surgery: No There are no social concerns with this patient. Prescription drug management Prescriptions will include symptomatic care Patient's prior external medical records from other ER visits were reviewed by me as indicated. Prior testing and results from previous visits were reviewed. Prior tests were taken into account with medical decision making and resource utilization, independent historian/historians were used to obtain complete medical history. I independently interpreted the test that were performed, results were reviewed by me and considered findings on radiology if ordered. Medical management and examination interpretation discussions were had by me with other qualified healthcare professionals as indicated for the patient's care. Problem List Problem List: (1) Episcleritis (2) Subconjunctival hemorrhage DX & DISP Disposition: Discharge Departure Impression: Primary Impression: Episcleritis Additional Impression: Subconjunctival hemorrhage Condition: Stable Additional Instructions: Patient and the caregiver have been informed of all the diagnostic tests and the imaging conducted during the today's visit to the emergency room and has verbalized understanding of the results I have personally reviewed and inte rpreted all diagnostic exams performed here in the ER today as well as the vital signs documented by the nursing staff. The patient is now being discharged to home and should follow up with the primary care physician or the specialist as directed by the ER staff. Follow-up with primary care provider in 1 to 2 days. Take medications as directed here in the emergency room. Okay to continue home medications unless otherwise discussed during your visit in the emergency room today. Return to your nearest emergency room if symptoms worsen or if there is no improvement. Call 911 if you need immediate assistance. Take Tylenol or Motrin [id number] as needed and if no contraindications are present. Increase oral hydration. A wound culture or urine culture was ordered here in the emergency room department please follow-up with primary care provider and advise them to get repeat ports from our facility. If you had any Venu wrap/splints that were applied here, please do not remove them until you see your primary care or specialty. Referrals: MICHELLE ESTEVEZ MD (PCP) MADDY NOE MD Jan 29, 2024 23:47
[2024-01-29 23:58] VITALS: BP 134/54; PULSE 65; RESP 16; O2SAT 98
== END 2024-01-30 00:03 | disposition home or self-care (01) ==
LOC: EDH 21:41
DX: H15.101 Unspecified episcleritis, right eye (principal); H11.31 Conjunctival hemorrhage, right eye; F03.90 Unspecified dementia, unspecified severity, without behavioral disturbance, psychotic disturbance, mood disturbance, and anxiety; I10 Essential (primary) hypertension; J44.9 Chronic obstructive pulmonary disease, unspecified; Z79.899 Other long term (current) drug therapy; Z82.49 Family history of ischemic heart disease and other diseases of the circulatory system; Z90.710 Acquired absence of both cervix and uterus; Z96.659 Presence of unspecified artificial knee joint
CPT/HCPCS: 99283